=== PATIENT | female | born 1980 | race Caucasian/White ===

== ENCOUNTER 2017-10-03 17:09 | Emergency (ER) | payer OTHER, SELFPAY ==
--- NOTE | 2017-10-03 | RAD_ITS ---
STUDY: X-RAY CHEST REASON FOR EXAM: Female, 36 years old. Chest pain for one week and shortness of breath. TECHNIQUE: Single AP portable view of the chest. COMPARISON: None. FINDINGS: The lungs are clear and expanded. There is no demonstrated pleural abnormality. Normal size heart. Normal mediastinum and luciana. Normal visualized pulmonary arteries. Normal visualized aortic arch and descending thoracic aorta. Normal visualized thoracic spine. Normal visualized ribs, clavicles, and shoulders. There is no demonstrated abnormality of the visualized soft tissue structures of the upper abdomen. RAD/Chest 1 View (Portable) IMPRESSION: Normal x-ray examination of the chest. Electronically Signed: Christina Boyd MD at 18:14 EDT , Service support ,
[2017-10-03 17:11] VITALS: BP 156/103; PULSE 104; RESP 16; TEMP 36.9; O2SAT 100; BMI 30.2
--- NOTE | 2017-10-03 17:16 | ED.RN ---
NO OLD EKG'S IN MUSE.
--- NOTE | 2017-10-03 17:44 | EKG12_ITS ---
Test Reason : CP Blood Pressure : / mmHG Vent. Rate : 103 BPM Atrial Rate : 103 BPM P-R Int : 120 ms QRS Dur : 090 ms QT Int : 370 ms P-R-T Axes : 070 015 040 degrees QTc Int : 484 ms Sinus tachycardia Otherwise normal ECG Confirmed by MICHELLE MOHAN, ANDREINA ([id number]), assignment desk editor NANY BOOKER ([id number]) on 10/07/2017 3:02:41 PM Referred By: ALAN Confirmed By:ANDREINA MARTINEZ MD
[2017-10-03] MEDS: Ondansetron 4 MG/2 ML Vial IV (17:51)
[2017-10-03] MEDS: Ketorolac 30 MG/ML Syringe IV (17:51)
[2017-10-03] MEDS: 0.9% Normal Saline 1,000 ML 150 ML IV (17:56)
[2017-10-03 18:05] LABS: Absolute Lymphocyte Count 3.63 X10^3/ul (0.83-4.51); Absolute Neutrophil Count 7.5 X10^3/uL (2.0-7.7); Basophil# 0.03 X10^3/uL; Basophil% 0.3 % (0-1); Eosinophil# 0.07 X10^3/uL; Eosinophils% 0.6 % (0-5); Hematocrit 43.4 % (37-47); Hemoglobin 15.2 g/dl (12.0-15.0); Lymphocyte # 3.63 X10^3/ul (4.0); Lymphocyte % 30.9 % (19-41); Mean Corpuscular Hgb 31.3 pg (27.0-32.0); Mean Corpuscular Volume 89.3 fL (81-99); Mean Platelet Vol. 10.9 fl (6.2-12.0); Monocyte# 0.52 X10^3/uL; Monocyte% 4.4 % (0-10); Neutrophil # 7.45 X10^3/uL (2.7-7.7); Neutrophil % 63.5 % (47-70); Platelet Count 297 K/mm3 (150-450); RBC Distribution Width CV 11.7 % (11.6-14.6); Red Blood Count 4.86 M/mm3 (4.2-5.4); White Blood Count 11.7 K/mm3 (4.4-11.0)
[2017-10-03 18:06] LABS: POSITIVE COUNT NO; POSITIVE DIFFERENTIAL NO; POSITIVE MORPHOLOGY NO
[2017-10-03 18:15] LABS: D-Dimer Quantitative (DVT/PE) < 0.27 FEU/ug/m (0.27-0.49)
[2017-10-03 18:22] LABS: Anion Gap 10 (5-15); BUN 11 mg/dL (7-18); BUN/Creat Ratio 11.4 RATIO (10-20); Calcium,Total 9.2 mg/dL (8.5-10.1); Chloride 103 mmol/L (98-107); Creatinine, Serum 0.96 mg/dL (0.55-1.02); EST Glomerular Filtration Rate 68 mL/min (>60); Est Glom Filt Rate - Afr Amer 83 mL/min (>60); Estimated Creatinine Clearance 57.07 ml/min; Glucose 123 mg/dL (74-106); Potassium 3.3 mmol/L (3.5-5.1); Sodium Level 138 mmol/L (136-145); Thyroid Stim Hormone (TSH) 2.16 uIU/mL (0.358-3.74)
[2017-10-03 18:29] LABS: Pregnancy, Serum, hCG Quali. NEGATIVE Negative (0-9 Nonpreg)
--- NOTE | 2017-10-03 19:06 | ED.VISSUMM ---
- ER Visit Summary Date of Service: 10/03/17 Chief Complaint: Chest pain History of Present Illness: The patient is a 36 F with intermittent chest pain for the past 3 months. Symptoms are becoming more frequent. She describes a tightness in her chest with some mild shortness of breath. She feels lightheaded and near syncope as well. Patient states his symptoms are somewhat worse when she lies down at night but does not feel like her previous reflux she had when she was . She has had complaints of some mild nausea. She has not had significant recent travel. No personal or family history of DVT. Physical Examination: Blood pressure is 156/103, temperature 98.5, heart rate 104, respiratory rate 16, pulse ox 100% on room air. Patient sitting upright in bed no acute distress. Head neck examination is unremarkable. Heart is regular rate and rhythm. Lung sounds are clear. She has no reproducible chest wall tenderness on my exam. Abdomen is soft nontender. Extremity examination reveals no calf tenderness or edema. She has strong distal pulses throughout. Test Results: Chest x-ray is unremarkable. EKG is sinus at 103 with no sign of acute ischemia. CBC was a white count 11.7 with normal differential. Hemoglobin is slightly concentrated at 15.2. Chemistry studies were potassium 3.3. Troponin is negative. D-dimer is negative. TSH is normal. Emergency Department Course and Treatment: Patient was given Toradol, Zofran, and IV fluids. On repeat evaluation patient is resting comfortably. Heart rate is in the 80s. Test results were discussed with her and at bedside. She has an appointment with her doctor in 1 week. Patient be given prescription for potassium replacement along with omeprazole and Zofran to see if this improves her symptoms. She is encouraged to return for any worsening symptoms or concerns. Treatment Plan: [] Disposition: Discharge Impression: Chest pain, uncertain etiology This note was generated with [employer] dictation software. It may contain incorrect words, spelling, and punctuation that were not noted in review of the chart prior to signing ED Disposition - Plan for ED Patient: Chief Complaint: Chest Pain Referrals: Екатерина Fierro MD [Primary Care Provider] -
--- NOTE | 2017-10-03 19:09 | ED.DEP ---
ED Disposition - Plan for ED Patient: Disposition: Home or Assisted Living Chief Complaint: Chest Pain Instructions: ED Chest Pain Atypical Unkn Cause Prescriptions: Ondansetron [Zofran Odt] 4 mg PO Q8H PRN PRN #10 tablet PRN Reason: Nausea Omeprazole 20 mg PO DAILY #30 capsule. Potassium Chloride [K-Dur] 20 meq PO BID #10 tablet Referrals: Екатерина Fierro MD [Primary Care Provider] - Keep Farhana appointment
[2017-10-03 19:15] VITALS: BP 116/76; PULSE 69; RESP 12; O2SAT 98
--- NOTE | 2017-10-03 19:16 | ED.RN ---
IV DC'ED, CATHETER INTACT, SMALL GAUZE DRESSING PLACED. DISCHARGE INSTRUCTIONS GIVEN TO AND REVIEWED WITH PATIENT, PATIENT DENIES QUESTIONS OR CONCERNS AND VOICES UNDERSTANDING OF DISCHARGE INSTRUCTIONS. PT AMBULATES OUT OF ROOM WITHOUT DIFFICULTY.
== END 2017-10-03 19:16 | disposition home or self-care (01) ==
PROVIDERS: Emergency Provider Emergency Medicine; Family Provider Family Medicine; PCP Family Medicine
DX: R07.9 Chest pain, unspecified (principal); R06.02 Shortness of breath; R55 Syncope and collapse; R11.0 Nausea; Z79.899 Other long term (current) drug therapy
CPT/HCPCS: 71045; 80048; 84443; 84484; 84703; 85025; 85379; 93005; 96361; 96374; 96375; 99285; J7030; J2405

== ENCOUNTER → 2025-01-11 | Outpatient (CLI) | payer OTHER, SELFPAY ==
[2025-01-11 08:58] LABS: Color, Urine Yellow (Yellow); Glucose, Dipstick Normal (Normal); Ketone-Dipstick Negative (Negative); Leukocyte Esterase-Dipstick 25 /ul (Negative); Nitrite-Dipstick Negative (Negative); Occult Blood-Urine Negative /ul (Negative); Protein-Dipstick 30 mg/dl (Negative); Specific Gravity, Urine 1.015 (1.002-1.030); Urine Bilirubin Dipstick Negative (Negative)
[2025-01-11 09:03] LABS: Hematocrit 42.0 % (37-47); Hemoglobin 13.8 g/dL (12.0-15.0); Immature Granulocytes Count 0.020 X10^3/uL (0.0-0.0); Mean Corp Hgb Conc 32.9 g/dL (32-36); Mean Corpuscular Volume 91.3 fL (81-99); Mean Platelet Vol. 10.7 fl (6.2-12.0); NRBC Flagged by Analyzer 0 % (0-5); Platelet Count 282 K/mm3 (150-450); RBC Distribution Width CV 12.0 % (11.6-14.6); RBC Distribution Width SD 39.8 fl (35.1-43.9); Red Blood Count 4.60 M/mm3 (4.2-5.4); White Blood Count 7.9 K/mm3 (4.4-11.0)
[2025-01-11 09:07] LABS: EXAGEN MAILED SPECIMEN
[2025-01-11 09:33] LABS: Creatinine, Urine (random) 288.00 mg/dL (28.00-217.00); Protein, Urine (Random) 28.9 mg/dL (0.0-12.0); Protein:Creat Ratio 100 mg/g CRE (0-200)
[2025-01-11 10:04] LABS: AST(SGOT) 21 U/L (<=31); Alanine Aminotransfer ALT/SGPT 23 U/L (<=34); Albumin, Serum 4.3 g/dL (3.5-5.0); Alkaline Phosphatase 85 U/L (35-104); Anion Gap 14 (5-15); BUN 14 mg/dL (4-19); BUN/Creat Ratio 17.4 RATIO (10-20); CRP < 3.00 mg/L (0.0-3.0); Calcium,Total 8.9 mg/dL (7.6-11.0); Carbon Dioxide 21.7 mmol/L (21.0-32.0); Chloride 105 mmol/L (98-108); Globulin 2.6 g/dL (2.2-4.2); Glucose 99 mg/dL (70-99); Hepatitis B Surface Antigen Nonreactive (Nonreactive); Hepatitis C Antibody Nonreactive (Nonreactive); Potassium 3.9 mmol/L (3.3-5.1)
[2025-01-14 05:07] LABS: Dilute Russell Viper Venom 36.0 sec (0.0-47.0); Interpretation Comment: (.); PTT-LA 29.5 sec (0.0-43.5)
== END | disposition home or self-care (01) ==
LOC: LAB 07:50
PROVIDERS: PCP Family Medicine; Referring Provider Internal Medicine Rheumatology; Visit Provider Internal Medicine Rheumatology
DX: M06.4 Inflammatory polyarthropathy (principal); F41.9 Anxiety disorder, unspecified; N39.46 Mixed incontinence; R76.89 Other specified abnormal immunological findings in serum
CPT/HCPCS: 80053; 81002; 82570; 84156; 85025; 85652; 86140; 86706; 86803; 87340